=== PATIENT | female | born 1950 | race Caucasian/White ===

== ENCOUNTER 2017-05-20 13:03 | Outpatient (CLI) | payer MEDICARE ==
[2017-05-20 17:59] LABS: BASOPHILS % (AUTO) 0.6 %; EOSINOPHILS % (AUTO) 0.3 %; HCT - HEMATOCRIT 40.3 % (37.0-47.0); HGB - HEMOGLOBIN 13.7 g/dL (12.0-16.0); LYMPHOCYTES # (AUTO) 1.7 10^3/uL (1.5-3.5); LYMPHOCYTES % (AUTO) 26.9 %; MEAN CORPUSCULAR HEMOGLOBIN 32.1 pg (27.0-31.0); MEAN CORPUSCULAR VOLUME 94.5 fL (81.0-99.0); MEAN PLATELET VOLUME 8.6 fL (7.9-10.8); MONOCYTES # (AUTO) 0.4 10^3/uL (0.0-1.0); MONOCYTES % (AUTO) 6.8 %; NEUTROPHILS % (AUTO) 65.4 %; NUCLEATED RED BLOOD CELLS AUTO 0.1 /100WBC; RED BLOOD COUNT 4.27 10^6/uL (4.20-5.40); RED CELL DISTRIBUTION WIDTH 13.1 % (12.0-15.0); UNCORRECTED WHITE BLOOD COUNT 6.1 x10^3/uL; WHITE BLOOD COUNT 6.1 x10^3/uL (4.8-10.8)
[2017-05-20 18:18] LABS: ALBUMIN/GLOBULIN RATIO 1.7 (1.0-2.2); BILIRUBIN,TOTAL 0.5 mg/dL (0.2-1.0); BUN - BLOOD UREA NITROGEN 11 mg/dL (6-20); CALCIUM 9.1 mg/dL (8.5-10.3); CARBON DIOXIDE - CO2 23 mmol/L (21-32); CHLORIDE 106 mmol/L (101-111); CREATININE 0.9 mg/dL (0.4-1.0); GFR - MDRD 62 (>89); GLUCOSE 156 mg/dL (70-100); POTASSIUM 3.7 mmol/L (3.5-5.0); SODIUM 138 mmol/L (135-145); TOTAL PROTEIN 6.9 g/dL (6.7-8.2)
== END 2017-05-20 13:04 | disposition home or self-care (01) ==
LOC: LAB.F 13:03
PROVIDERS: ATTEND Internal Medicine
DX: F32.1 Major depressive disorder, single episode, moderate (principal)
CPT/HCPCS: 36415; 80053; 84443; 85025

== ENCOUNTER 2018-06-18 08:28 | Outpatient (CLI) | payer MEDICARE | END 2018-06-18 08:29 | disposition EMS.NT | LOC: EMS 08:28 | PROVIDERS: ATTEND Surgery | DX: R55 Syncope and collapse (principal); M54.5 Low back pain ==

== ENCOUNTER 2018-06-18 09:03 | Emergency (ER) | payer MEDICARE ==
[2018-06-18] MEDS ORDERED: KETOROLAC 60 MG/2 ML VIAL IM STA (09:23)
[2018-06-18] MEDS ORDERED: DEXAMETHASONE 10 MG/ML VIAL PO STA (09:24)
--- NOTE | 2018-06-18 09:27 | ED Physician Documentation ---
PD HPI BACK PAIN - Stated complaint Stated Complaint: BACK PX - Chief complaint Chief Complaint: Back Pain - History obtained from History obtained from: Patient, Family () - History of Present Illness Timing - onset: Yesterday Timing - details: Still present Location: Lower, Left Quality: Pain Associated symptoms: No: Fever, Weakness, Numbness, Incontinent of urine Worsened by: Movement Similar symptoms before: No diagnosis - Additional information Additional information: The patient is a 68-year-old female who presents with low back pain that started a few days ago, was aching yesterday, but was much worse this morning, causing her to drop to her knees. She initially reported slightly decreased sensation of her left foot yesterday, but states it is normal this morning. She had one episode of vomiting this morning. She denies abdominal pain, fever, or urinary incontinence. She denies any traumatic injury. She reports history of similar pain many years ago, and got relief after seeing a chiropractor. She has a TENS unit which she was using yesterday. She takes no medication. Review of Systems Constitutional: denies: Fever Nose: denies: Congestion Throat: denies: Sore throat Cardiac: denies: Chest pain / pressure Respiratory: denies: Dyspnea, Cough GI: reports: Vomiting (Once). denies: Abdominal Pain : denies: Dysuria, Incontinent Skin: denies: Rash Musculoskeletal: reports: Back pain. denies: Neck pain, Extremity swelling Neurologic: denies: Focal weakness, Numbness, Headache PD PAST MEDICAL HISTORY - Past Medical History Respiratory: None Endocrine/Autoimmune: None - Present Medications Home Medications: Ambulatory Orders Medication Instructions Recorded Confirmed Cyclobenzaprine [Flexeril] 10 mg PO TID PRN #20 tablet 06/18/18 Hydrocodone/Acetaminophen 1 - 2 each PO Q6H PRN #14 tablet 06/18/18 [Hydrocodon-Acetaminophen 5-325] - Allergies Allergies/Adverse Reactions: Allergies Allergy/AdvReac Type Severity Reaction Status Date / Time No Known Drug Allergies Allergy Verified 06/18/18 09:09 PD ED PE NORMAL - Vitals Vital signs reviewed: Yes (normal) - General General: Alert and oriented X 3, Well developed/nourished - HEENT HEENT: Atraumatic, Moist mucous membranes - Neck Neck: No bony TTP, No JVD - Cardiac Cardiac: RRR, No murmur - Respiratory Respiratory: No respiratory distress, Clear bilaterally - Abdomen Abdomen: Soft, Non tender - Back Back: No CVA TTP, No spinal TTP, Other (Tenderness to palpation in the left paralumbar musculature. No tenderness along the spinous processes.) - Derm Derm: No rash - Extremities Extremities: No tenderness to palpate, No edema, No calf tenderness / cord, Other (Straight leg raise test is negative bilaterally.) - Neuro Neuro: Alert and oriented X 3, No motor deficit, No sensory deficit, Other (Deep tendon reflexes are 2+ and equal bilaterally at the patellar and Achilles tendons.) Results - Vitals Vitals: Vital Signs - 24 hr 06/18/18 06/18/18 09:07 11:00 Temperature 36.0 C L Heart Rate 60 57 L Respiratory 15 15 Rate Blood Pressure 130/61 131/63 H O2 Saturation 99 97 Oxygen O2 Source Room air PD MEDICAL DECISION MAKING - ED course Complexity details: re-evaluated patient, considered differential, d/w patient, d/w family ED course: The patient's presentation is most consistent with musculoskeletal low back pain. Her presentation does not suggest spinal stenosis, epidural abscess, or cauda equina syndrome. Treatment in the emergency department included administration of ketorolac 60 mg IM, and dexamethasone 10 mg orally. Her symptoms improved with the above treatment. She is being discharged with a prescription for Flexeril and for Vicodin, 14 tablets. I discussed with her and her the expected course of illness, symptomatic treatment and outpatient follow-up, as well as potent ially worrisome signs or symptoms that should prompt reevaluation in the emergency department. Departure - Departure Disposition: 01 Home, Self Care Clinical Impression: Back pain Qualifiers: Back pain location: low back pain Chronicity: acute Back pain laterality: left Sciatica presence: without sciatica Qualified Code(s): M54.5 - Low back pain Condition: Stable Instructions: ED Low Back Pain Injury Prescriptions: Cyclobenzaprine [Flexeril] 10 mg PO TID PRN #20 tablet PRN Reason: Spasms Hydrocodone/Acetaminophen [Hydrocodon-Acetaminophen 5-325] 1 - 2 each PO Q6H PRN #14 tablet PRN Reason: pain Comments: Apply ice pack to your lower back intermittently for the next three days. You can use Ibuprophen, up to 800 mg three times daily for its anti-inflammatory effect. You can use Flexeril as prescribed if needed for muscle spasms. You can use Vicodin as prescribed if needed for pain. Follow up with a primary physician within two weeks if possible. Return to Emergency if you develop increasing pain, increasing numbness or weakness, urinary incontinence, or otherwise worsening symptoms. Discharge Date/Time: 06/18/18 11:00
[2018-06-18] MEDS ORDERED: CHERRY SYRUP 10 ML UDC PO ONE (09:28)
[2018-06-18 11:39] VITALS: BP 131/63
== END 2018-06-18 11:00 | disposition home or self-care (01) ==
LOC: ED 09:03
DX: M54.5 Low back pain (principal)
CPT/HCPCS: 96372; 99283; A9270

== ENCOUNTER 2022-06-19 08:00 | Outpatient (CLI) | payer MEDICARE ==
[2022-06-19 18:15] LABS: BACTERIAL VAGINOSIS DNA NEGATIVE (NEGATIVE); CANDIDA GLABRATA DNA NEGATIVE (NEGATIVE); CANDIDA GROUP DNA NEGATIVE (NEGATIVE); CANDIDA KRUSEI DNA NEGATIVE (NEGATIVE); TRICHOMONAS VAGINALIS DNA NEGATIVE (NEGATIVE)
== END 2022-06-19 23:59 | disposition home or self-care (01) ==
LOC: LAB.S 08:00
PROVIDERS: ATTEND Registered Nurse
DX: R30.0 Dysuria (principal); L29.8 Other pruritus; N89.8 Other specified noninflammatory disorders of vagina; Z87.42 Personal history of other diseases of the female genital tract
CPT/HCPCS: 81514

== ENCOUNTER 2023-03-10 13:41 | Outpatient (CLI) | payer MEDICARE ==
[2023-03-10 19:45] LABS: BASOPHILS # (AUTO) 0.1 10^3/uL (0.0-0.1); BASOPHILS % (AUTO) 1.1 %; EOSINOPHILS % (AUTO) 0.3 %; HCT - HEMATOCRIT 41.6 % (37.0-47.0); LYMPHOCYTES # (AUTO) 2.1 10^3/uL (1.5-3.5); LYMPHOCYTES % (AUTO) 33.1 %; MEAN CORPUSCULAR HEMOGLOBIN 32.6 pg (27.0-31.0); MEAN CORPUSCULAR HGB CONC 33.7 g/dL (32.0-36.0); MEAN CORPUSCULAR VOLUME 96.7 fL (81.0-99.0); MEAN PLATELET VOLUME 9.9 fL (7.9-10.8); MONOCYTES # (AUTO) 0.7 10^3/uL (0.0-1.0); MONOCYTES % (AUTO) 10.7 %; NEUTROPHILS # (AUTO) 3.5 10^3/uL (1.5-6.6); NEUTROPHILS % (AUTO) 54.5 %; PLT - PLATELET COUNT 220 10^3/uL (130-450); RED CELL DISTRIBUTION WIDTH 12.4 % (12.0-15.0); WHITE BLOOD COUNT 6.5 x10^3/uL (4.8-10.8)
[2023-03-10 20:04] LABS: ALBUMIN 4.3 g/dL (3.2-5.5); ALBUMIN/GLOBULIN RATIO 1.6 (1.0-2.2); BILIRUBIN,TOTAL 0.5 mg/dL (0.2-1.0); CALCIUM 9.6 mg/dL (8.5-10.3); POTASSIUM 3.8 mmol/L (3.5-4.5)
== END 2023-03-10 13:42 | disposition home or self-care (01) ==
LOC: LAB.S 13:41
PROVIDERS: ATTEND Emergency Medicine
DX: K81.9 Cholecystitis, unspecified (principal)
CPT/HCPCS: 36415; 80053; 83690; 85025